=== PATIENT | male | born 1990 | race African-American/Black ===

== ENCOUNTER 2019-04-14 08:46 | Emergency (ER) | payer BC, MEDICAID ==
[~2019-04-14] VITALS: Ht 175.3 cm; Wt 152.0 kg
[2019-04-14 08:50] VITALS: BP 153/87
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
[2019-04-14] MEDS ORDERED: KETOROLAC 30 MG/ML VIAL IM ONE (09:30)
--- NOTE | 2019-04-14 09:41 | NUR ---
PT TAKEN TO CT VIA WHEELCHAIR. ACCOMPAINED BY [facility].
--- NOTE | 2019-04-14 09:55 | NUR ---
pt returned from ct
[2019-04-14 10:40] VITALS: BP 140/65
--- NOTE | 2019-04-14 10:40 | NUR ---
Patient discharged with v/s stable. Written and verbal after care instructions given and explained. Patient alert, oriented and verbalized understanding of instructions. [g ED.DCMODE] with [g ED.D/CMODE]. All questions addressed prior to discharge. ID band removed. Patient advised to follow up with PMD. Rx of MOTRIN 800 MG given. Patient educated on indication of medication including possible reaction and side effects. Opportunity to ask questions provided and answered.
== END 2019-04-14 10:40 | disposition home or self-care (01) ==
LOC: MED 08:46
DX: S00.03XA Contusion of scalp, initial encounter (principal); I10 Essential (primary) hypertension; F31.9 Bipolar disorder, unspecified; W20.8XXA Other cause of strike by thrown, projected or falling object, initial encounter; Y93.89 Activity, other specified; Y92.89 Other specified places as the place of occurrence of the external cause; Y99.8 Other external cause status
CPT/HCPCS: 70450; 96372; 99284; J1885